=== PATIENT | male | born 1990 | race Caucasian/White ===

== ENCOUNTER 2025-08-06 14:14 | Outpatient (CLI) | payer BC, SELFPAY ==
--- NOTE | ~2025-08-06 | MR_ITS ---
EXAM/PROCEDURE: MR brain/brain stem wo/w con HISTORY: R51.9 - Headache, unspecified COMPARISON: None available. TECHNIQUE: Pre and postcontrast enhanced brain MRI performed. FINDINGS: No mass, mass effect or hemorrhage. No acute ischemic event or effusion. On postcontrast images, no abnormal enhancing lesions or masses Brantley-white signal pattern is preserved. Brainstem and cerebellum appear normal. Moderately extensive mucoperiosteal thickening present in the maxillary sinuses, right worse than left. Mild degenerative changes present in the sphenoid sinuses and ethmoid air cells. Paranasal Pelvis structures otherwise unremarkable. IMPRESSION: Moderately advanced paranasal sinus disease particularly involving the maxillary sinuses. Otherwise negative pre and postcontrast enhanced brain MRI. Reviewed, dictated and finalized at location [facility]. [facility] IMPRESSION: Moderately advanced paranasal sinus disease particularly involving the maxillar y sinuses. Otherwise negative pre and postcontrast enhanced brain MRI.
--- OUTSIDE RECORDS SUMMARY | 2025-08-06 14:19 | XMS_ITS | Clinical Summary ---
Author Organization [facility] Address [address] [place] [address] Phone Care Team Providers Care Supervisor Home [facility] Service Name Role Phone Unavailable Primary Care Provider Unavailabl e Allergies No known active allergies Medications chloroquine 500 MG PO TABS Take 1 Tab by mouth once a week. Begin 2 weeks prior and take until 4 weeks after travel 7 Tab 0 0 Active Additional Information Patient not taking.Reported on 10/08/2021 Active Problems Problem Noted Date Diagnosed Date Need for immunization against malaria 02/23/2010 Immunizations Immunization Administration Dates Next Due DTAP VACCINE 07/20/1996, 3,01/13/1992,1991,1990 HIB Vaccine (PRP-T) 10/14/1992,01/13/1992,1991,1991 Hepatitis B Vaccine 11/02/2002,04/16/2002,2001 Inactivated Polio Vaccine 07/20/1996,01/18/1993, 1991,1991 MMR Vaccine 07/20/1996,10/14/1992 Meningococcal Vaccine 01/14/2006 PUR HEP A ADULT IM 02/23/2010 TDAP Vaccine 01/13/2006 Social History Tobacco Use Types Packs/Day Years Used Date Smoking Tobacco: Never Smokeless Tobacco: Never Alcohol Use Standard Drinks/Week Comments No 0 (1 standard drink = 0.6 oz pur e alcohol) Sex and Gender Information Value Date Recorded Sex Assigned at Not on file Legal Sex Male 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 Gender Identity Not on file Sexual Orientation Not on file Last Filed Vital Signs Vital Sign Reading Time Taken Comments Blood Pressure 120/80 10/08/2021 1:51 PM SHAREPOINT ANALYST Pulse 95 10/08/2021 1:51 PM SHAREPOINT ANALYST Temperature 37.2 C (99 F) 10/08/2021 1:51 PM SHAREPOINT ANALYST Respiratory Rate 16 10/08/2021 1:51 PM SHAREPOINT ANALYST Oxygen Saturation 97% 10/08/2021 1:51 PM SHAREPOINT ANALYST Inhaled Oxygen Concentration - - Weight 71.2 kg (157 lb) 10/08/2021 1:51 PM SHAREPOINT ANALYST Height 172.1 cm (5' 7.75) 02/23/2010 9:29 AM CD T Body Mass Index - - Plan of Treatment Health Maintenance Due Date Last Done Comments Hepatitis C Virus (HCV) Screening 1991 DTaP/Tdap/Td Immunization (7 - Td or Tdap) 01/14/2016 01/13/2006, 07/20/1996, 01/18/1993, Additional history exists Human Papillomavirus (HPV) Immunization (1 - 3-dose SCDM series) 2018 Influenza Immunization (#1) 2025 SARS-COV-2 Immunization (3 - 2024- season) 2025 01/24/2021, 01/03/2021 Respiratory Syncytial Virus (RSV) Immunization (Adult) (1 - 1-dose 75+ series) 2066 Hepatitis B Immunization Completed 003, 04/16/2002, 03/09/2002 Meningococcal Immunization (ACWY) Aged Out 01/14/2006 No longer eligible based on patient's age to complete this topic Pneumococcal Immunization Combined Aged Out No longer eligible based on patient's age to complete this topic Rotavirus Immunization Aged Out No lo nger eligible based on patient's age to complete this topic Insurance [facility]
== END 2025-08-06 14:15 | disposition home or self-care (01) ==
PROVIDERS: PCP Nurse Practitioner; Visit Provider Nurse Practitioner
DX: R51.9 Headache, unspecified (principal)
CPT/HCPCS: 70553; A9577

== ENCOUNTER 2025-09-08 08:07 | Emergency (ER) | payer BC, SELFPAY ==
[2025-09-08 08:22] VITALS: BP 114/79; PULSE 69; RESP 16; TEMP 36.1; O2SAT 99
--- NOTE | 2025-09-08 08:39 | ED_ITS ---
HPI - Skin/Abscess/Foreign Bdy General Chief complaint: Skin/Abscess/Foreign Body Stated complaint: ABSCESS ON BACK Time Seen by Provider: 09/08/25 08:25 Source: patient Mode of arrival: ambulatory Limitations: no limitations History of Present Illness HPI narrative: Ramon is a 35 year old female patient presenting to the clinic today with c/o possible abscess to the right upper back x1 week. States his tried to pop it without success. The area has become bigger and more painful. Has had a small amount of foul smelling drainage coming from the area. No fevers, chills, body aches. No history of MRSA or staph in the past. Related Data Home Medications ?Medication ?Instructions ?Recorded ?Confirmed ?Last Taken ?Type ubrogepant 50 mg tablet (Ubrelvy) 50 mg PO ONCE 09/04/25 Unknown History Allergies Allergy/AdvReac Type Severity Reaction Status Date / Time No Known Allergies Allergy Verified 09/08/25 08:32 [facility] Past Medical History Medical History (Updated 09/08/25 @ 09:30 by Elan Armando APRN) Epistaxis Family History Family History Grandparent Heart disease Social History Social History Smoking status: Never smoker Alcohol intake: current Drinks per week: 2 Alcohol use details: Beer and/or [place] Substance use: never Substance use type: does not use Lack of Transportation: No Lack of Food: Never True Current Housing: I Have Housing Concerned About Future Housing: No Difficulty Paying Gas/Electric Bills: No Difficulty Paying for Meds: No Currently Unemployed: No Education: Bachelor's Degree Difficulty w/ Childcare or Family Care: No Living arrangements: with family Additional living arrangements comments: with fiance Occupation/Education: occupation 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 There is no relevant family history pertinent to the patient complaint. Exam Narrative: General: Well-developed, well nourished, in no apparent distress Head: Normocephalic, atraumatic. Cardio: Regular rate and rhythm, s1 and s2 normal, no murmur appreciated. Resp: Clear to auscultation bilaterally, no rhonchi, rales, wheezing or rubs. Integumentary: [place], warm, and dry, indurated 5 x 5 cm fluctuant infected cyst to the right upper back with 2 small pustular areas, tender to palpation, mild erythema and redness. Course Course Level of Care: Express Care Visit Vital Signs Vital signs: Vital Signs Temperature 36.1 C L 09/08/25 08:22 Pulse Rate 69 09/08/25 08:22 Respiratory Rate 16 09/08/25 08:22 Blood Pressure 114/79 09/08/25 08:22 Pulse Oximetry 99 09/08/25 08:22 Temperature 36.1 C L 09/08/25 08:22 Pulse Rate 69 09/08/25 08:22 Respiratory Rate 16 09/08/25 08:22 Blood Pressure 114/79 09/08/25 08:22 Pulse Oximetry 99 09/08/25 08:22 Procedures Abscess I/D back: Date of Incision: 09/08/25 Side (if applicable): right Sedation/analgesia: none Local Anesthetic: lidocaine 1% and with epi Amount of anesthesia used (mL): 2 Technique: incised with #11 blade and probed loculations Amount of fluid expressed (mL): 10 Irrigation: No Packing used?: iodoform I&D Results: Pus and Blood Complications: other (None) Abcess I&D Additional Comments: Verbal consent obtained for incision and drainage. Risk and benefits explained and patient voiced understanding. Area was cleansed with betadine. Area was prepped and draped using sterile technique. 25 gauge needle was then used to instill (2) ml of lidocaine with epi into the wound edges. Patient tolerated well and anesthesia was appropriate. An 11 blade scalpel was then used to make a 0.5cm incision over the abscess. White/brown bloody exudate expressed from cavity with some cyst-like exudate. Wound culture obtained and sent to lab. Patient tolerated procedure well. MDM MDM Narrative Medical decision making narrative: At the time of visit patient is resting comfortably on the exam table. Patient appears to be nontoxic. C/o possible abscess to the right upper back x1 week. States his tried to pop it without success. The area has become bigger and more painful. Has had a small amount of foul smelling drainage coming from the area. No fevers, chills, body aches. No history of MRSA or staph in the past. On exam patient has a indurated 5 x 5 cm fluctuant infected cyst to the right upper back with 2 small pustular areas, tender to palpation, mild erythema and redness. Offered incision and drainage in patient consents. Procedure: Incision and drainage of the right infected sebaceous cyst was performed. Area was cleansed using Betadine. 2 mL Lidocaine with epi was instilled into the surrounding tissues-anesthesia was appropriate. Eleven blade was used to make a stab incision. Bloody whitish brown discharge with cyst-like exudate was expressed and wound culture was obtained. Cyst was expressed and quarter-inch iodoform packing was inserted to keep open to allow for drainage. Wound was covered with a nonstick adhesive and take. Patient tolerated procedure well. Plan: I suspect patient has infected sebaceous cyst. Incision and drainage was performed and wound culture was obtained and sent to the lab. Prescription for clindamycin was sent to the pharmacy. Work note was given. Supportive measures were discussed with the patient and they voiced understanding discharge instructions and agrees to treatment plan. Return precautions reviewed Differential Diagnosis Differential Diagnosis: Differential diagnostic considerations for skin/abscess/foreign body issues include abscess of skin or subcutaneous tissue, infected sebaceous cyst, viral exanthem, dermatophytosis, urticaria, herpes zoster, allergic reaction to drug, cellulitis, eczema, insect bites, impetigo, contact dermatitis, vasculitis. Discharge Plan Discharge Clinical Impression: Infected sebaceous cyst of skin Patient Disposition: Home Condition: Stable Instructions: Antibiotic Form, Cyst (ED) Additional Instructions: Incision and drainage was performed in the clinic today Wound culture was sent to the lab. Take clindamycin as prescribed Increase fluids and stay well hydrated May take Tylenol/Motrin as needed for pain as per bottle directions. Dressing changes daily-may change more often if soiled May wash wound daily with soap and water-you may take a shower but no tub baths Follow-up with your PCP in 2-3 days for wound check/packing removal Patient Language: Setswana Prescriptions: New clindamycin HCl [Cleocin HCl] 300 mg capsule 300 mg PO Q8H 7 Days Qty: 21 0RF Rx Instructions: take with 150mg cap to equal 450mg clindamycin HCl [Cleocin HCl] 150 mg capsule 150 mg PO Q8H 7 Days Qty: 21 0RF Rx Instructions: take with 300mg cap to equal 450mg every 8 hours No Action Ubrelvy 50 mg tablet 50 mg PO ONCE Patient Comments: Samples given in office today x 3 boxes: LOT [id number], EXP 09/2025 Rx Instructions: as a single dose; may repeat once in >=2 hours after first dose if needed Follow-up/Referrals: Callie Carrington APRN [Primary Care Provider, Internal Medicine] Stand Alone Forms: Work/School Release IP Time of Disposition: 09:29 Quality NIHSS Nursing Documentation ED NIHSS nursing documentation: reviewed/agree
[2025-09-08] MEDS: LIDO 1%/EPINEPHRINE 1:100,000 20 ML VIAL 10 ML INFILTRATE (08:49)
== END 2025-09-08 09:35 | disposition home or self-care (01) ==
PROVIDERS: Emergency Provider Nurse Practitioner Family; PCP Nurse Practitioner
DX: L72.3 Sebaceous cyst (principal)
CPT/HCPCS: 10061; 87070; 87205; 99213; G0463; J2004

== ENCOUNTER 2025-09-11 09:12 | Emergency (ER) | payer BC, SELFPAY ==
[2025-09-11 09:24] VITALS: BP 125/82; PULSE 66; RESP 16; TEMP 36.5; O2SAT 100
--- NOTE | 2025-09-11 09:47 | ED_ITS ---
HPI - Skin/Abscess/Foreign Bdy General Chief complaint: Skin/Abscess/Foreign Body Stated complaint: gauge packing removal patient presents to the [facility] for packing removal. Patient noted he was evaluated here at the [facility] 3 days ago and had an abscess/ cyst drained and packed. Patient noted this morning significant other removed bandage and some of the packing came out with blood and pus. Patient called primary care physician but was unable to get in this week. Patient was told in 72 hours to have this packing removed. Denies any worsening pain, swelling, or significant drainage from the area. Patient has been taking antibiotics as directed Related Data Home Medications ?Medication ?Instructions ?Recorded ?Confirmed ?Last Taken ?Type ubrogepant 50 mg tablet (Ubrelvy) 50 mg PO ONCE 09/04/25 Unknown History Allergies Allergy/AdvReac Type Severity Reaction Status Date / Time No Known Allergies Allergy Verified 09/08/25 08:32 Review of Systems Constitutional: Constitutional: Reports as per HPI, Denies chills, Denies fatigue, Denies fever(s) and Denies weakness Eyes: Eyes: Reports no additional eye complaints ENT: Reports system reviewed and no additional complaints, except as documented Cardiovascular: Cardiovascular: Reports no additional cardiovascular complaints Respiratory: Respiratory: Reports no additional respiratory complaints Gastrointestinal: Gastrointestinal: Reports no additional gastrointestinal complaints Genitourinary: Genitourinary: Reports no additional male genitourinary complaints Musculoskeletal: Musculoskeletal: Reports as per HPI, Denies back pain and Denies myalgias Integumentary/Breasts: Skin/Breast: Reports as per HPI, Reports erythema, Denies rash and Denies skin ulcer Comments: abscess/cyst right middle back-packing in place Neurologic: Reports as per HPI, Denies numbness and Denies weakness Psychiatric: Psychiatric: Reports no additional psychiatric complaints Endocrine: Endocrine: Reports no additional endocrine complaints Hematologic/Lymphatic: Hematologic/Lymphatic: Reports no additional hematologic/lymphatic complaints Allergic/Immunologic: Allergic/Immunologic: Reports no additional allergic/immunologic complaints [facility] Past Medical History Medical History (Updated 09/11/25 @ 09:49 by Sejal Singletary APRN, STAFFING ASSOCIATE-C) Epistaxis Family History Family History Grandparent Heart disease Social History Social History Smoking status: Never smoker Alcohol intake: current Drinks per week: 2 Alcohol use details: Beer and/or [place] Substance use: never Substance use type: does not use Lack of Transportation: No Lack of Food: Never True Current Housing: I Have Housing Concerned About Future Housing: No Difficulty Paying Gas/Electric Bills: No Difficulty Paying for Meds: No Currently Unemployed: No Education: Bachelor's Degree Difficulty w/ Childcare or Family Care: No Living arrangements: with family Additional living arrangements comments: with fiance Occupation/Education: occupation 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 Gender identity (if verbalized by the patient): Male Sexual Orientation (if Verbalized by the Patient): Straight or Heterosexual Spiritual care concerns: No Agree to blood products: Yes Exam Const: General: healthy appearing and no acute distress Nutritional Appearance: well nourished Orientation/consciousness: patient oriented x3 Limitations: no limitations Resp: Effort & Inspection: normal respiratory effort Auscultation: clear to auscultation bilaterally Cardio: Rate: regular rate Rhythm: regular rhythm Skin: General skin exam: normal color Rashes: no rashes Other: incision to right middle back with packing in place and purulence at drainage with bloody drainage. Packing was and skin cells and drainage expressed from incision. No significant erythema, warmth, or swelling noted around the incision Neuro: General: patient oriented x3 Speech: normal speech Gait exam (Neuro): Normal gait present Psych: Mental Status: mental status grossly normal Affect: normal affect Attitude: cooperative Course Course Level of Care: Express Care Visit Vital Signs Vital signs: Vital Signs Temperature 97.7 F 09/11/25 09:24 Pulse Rate 66 09/11/25 09:24 Respiratory Rate 16 09/11/25 09:24 Blood Pressure 125/82 09/11/25 09:24 Pulse Oximetry 100 09/11/25 09:24 Temperature 97.7 F 09/11/25 09:24 Pulse Rate 66 09/11/25 09:24 Respiratory Rate 16 09/11/25 09:24 Blood Pressure 125/82 09/11/25 09:24 Pulse Oximetry 100 09/11/25 09:24 Procedures Other Procedure Procedure 1: Other Procedure: packing removed from previous incision and drainage area right middle back. Express further drainage and skin cells from area moderate amount. Area cleaned then bacitracin and bandage applied MDM MDM Narrative Medical decision making narrative: packing removed. More drainage and skin cells removed from the area. Differential Diagnosis Differential Diagnosis: Cellulitis, cyst, abscess Medical Records I have reviewed the following patient records and this information was taken into consideration when formulating the assessment and plan.: previous labs, previous ER visits, previous hospitalizations and previous clinic visits Discharge Plan Discharge Clinical Impression: Abscess of skin or subcutaneous tissue Patient Disposition: Home Condition: Stable Instructions: Antibiotic Form, Abscess (ED) Additional Instructions: continue taking the antibiotic until gone DO NOT pick at the area. This will only make the area worse and drive infection deeper. DO NOT pick at the area. This will only make the area worse and drive infection deeper. Clean with soap and water only; Avoid using alcohol and peroxide. apply warm compresses for 20 minute several times a day to help soften the drainage, this may help open the area and cause drainage to come out. Alternate Tylenol/ibuprofen for as needed for pain Acetaminophen(Tylenol) 650- 1000mg every 4-6hours with max of 4000mg/day. Nonsteroidal anti-inflammatory agent (NSAIDs-ibuprofen): 400mg every 4-6hours with max 2400mg/day Take antibiotic until it's gone. If you began to have multiple or reoccurring abscesses in these areas may use daily tea tree body washes or weekly chlorhexidine/Hibiclens washes, bleach baths, or Phisohex Please schedule a follow up visit with your personal physician for further evaluation and treatment within 3-5days OR if your symptoms persist, change or worsen significantly before you can contact your personal physician then please, without delay, go to the emergency department for further evaluation. Patient Language: Trin[place] Prescriptions: No Action clindamycin HCl [Cleocin HCl] 300 mg capsule 300 mg PO Q8H 7 Days Qty: 21 0RF Rx Instructions: take with 150mg cap to equal 450mg clindamycin HCl [Cleocin HCl] 150 mg capsule 150 mg PO Q8H 7 Days Qty: 21 0RF Rx Instructions: take with 300mg cap to equal 450mg every 8 hours Ubrelvy 50 mg tablet 50 mg PO ONCE Patient Comments: Samples given in office today x 3 boxes: LOT [id number], EXP 09/2025 Rx Instructions: as a single dose; may repeat once in >=2 hours after first dose if needed Follow-up/Referrals: Callie Carrington APRN [Primary Care Provider, Internal Medicine] Time of Disposition: 09:49
== END 2025-09-11 09:56 | disposition home or self-care (01) ==
PROVIDERS: Emergency Provider Nurse Practitioner Family; PCP Nurse Practitioner
DX: Z48.01 Encounter for change or removal of surgical wound dressing (principal)
CPT/HCPCS: 99211; 99212; G0463